=== PATIENT | female | born 1960 | race Caucasian/White ===

== ENCOUNTER 2020-11-13 10:45 | Inpatient (IN) | payer MEDICARE, MEDICAID ==
[~2020-11-13] VITALS: Ht 172.7 cm; Wt 87.5 kg
--- NOTE | 2020-11-13 11:00 | NUR ---
PT BIB EMS FROM /[facility] FROM THE ER FEELING LIKE SHE IS GOING TO HAVE A SZ AND SHE IS GOING THROUGH [facility]. SHE DRINKS 2 FIFTHS OF VODKA DAILY AND HER LAST DRINK WAS YESTERDAY AFTERNOON. WAS GIVEN ATIVAN IN THE ER PRIOR TO ARRIVAL BUT IS RESTLESS ON THE GURNEY HERE ROLLING AROUND REQUESTING JUICE. PT ON CYCLING VITALS AND CONTINUOUS SP02. EMS STATES SHE WAS 88% ON RA SO SHE IS ON 2L O2 VIA NC. PROVIDER AT BEDSIDE FOR EVAL.
[2020-11-13] MEDS ORDERED: ARIP2TAB2 PO (11:07)
[2020-11-13] MEDS ORDERED: BUPR-86 PO (11:08)
[2020-11-13] MEDS ORDERED: QUET50TA9 PO (11:09)
[2020-11-13] MEDS ORDERED: LEVO25TA2 PO (11:09)
--- NOTE | 2020-11-13 11:19 | NUR ---
PROVIDER AT BEDSIDE FOR EVAL
[2020-11-13 11:27] LABS: BASOPHILS % (AUTO) 1 % (0-1); EOSINOPHILS % (AUTO) 0 % (1-7); LYMPHOCYTES % (AUTO) 20 % (22-44); MEAN CORPUSCULAR HEMOGLOBIN 33.9 pg (27.0-34.8); MEAN CORPUSCULAR HGB CONC 34.5 g/dL (32.4-35.8); MEAN PLATELET VOLUME 6.6 fL (7.4-10.4); MONOCYTES % (AUTO) 6 % (2-9); NEUTROPHILS % (AUTO) 73 % (42-75); PLATELET COUNT 319 x10^3/uL (130-400); RED CELL DISTRIBUTION WIDTH 13.6 % (9.6-15.2)
[2020-11-13] MEDS ORDERED: SODIUM CHLORIDE FLUSH 10ML SYR IVF ONE (11:30)
[2020-11-13] MEDS ORDERED: LORazepam 2 MG/ML, 1ML IVPush PRN (11:30)
[2020-11-13 11:33] LABS: ALANINE AMINOTRANSFERASE 44 U/L (12-78); ALBUMIN 4.1 g/dL (3.4-5.0); ANION GAP 12 mmol/L (5-15); CALCIUM 8.5 mg/dL (8.5-10.1); CHLORIDE 106 mmol/L (98-107); CREATININE 0.98 mg/dL (0.55-1.02)
[2020-11-13 11:42] LABS: MD NO
[2020-11-13 11:43] LABS: ALKALINE PHOSPHATASE 134 U/L (45-117); BILIRUBIN,TOTAL 1.3 mg/dL (0.2-1.0); TOTAL PROTEIN 7.5 g/dL (6.4-8.2)
--- NOTE | 2020-11-13 11:50 | NUR ---
FIRST IV FROM EMS WOULD NOT FLUSH AND CAME OUT WHEN ASSESING. 2ND IV PLACED BY SINGH SIMEON IN THE LEFT WRIST/FOREARM
[2020-11-13] MEDS ORDERED: LORazepam 2 MG/ML, 1ML ONE (11:54)
--- NOTE | 2020-11-13 11:58 | NUR ---
MEDICATION REQUEST SENT TO PHARMACY
[2020-11-13 12:00] LABS: FREE T4 (FREE THYROXINE) 0.64 ng/dL (0.76-1.46)
[2020-11-13] MEDS ORDERED: FOLIC ACID 1 MG TABLET PO ONE (12:00)
[2020-11-13] MEDS ORDERED: THIAMINE 100MG TABLET PO ONE (12:00)
[2020-11-13] MEDS ORDERED: MULTIVITAMIN 1 TABLET PO SCH (12:00)
[2020-11-13] MEDS ORDERED: THIAMINE 100MG TABLET ONE (12:16)
[2020-11-13] MEDS ORDERED: THIAMINE 200 MG in DEXTROSE 5% 50 ML IVPB SCH (12:30)
[2020-11-13] MEDS ORDERED: LORazepam 2 MG/ML, 1ML IV PRN ×2 (12:30)
--- NOTE | 2020-11-13 12:36 | NUR ---
BREAK RN: PT RESTING WITH EYES CLOSED, BREATHING EVEN AND UNLABORED
--- NOTE | 2020-11-13 12:58 | NUR ---
PT RESTING WITH EYES CLOSED, RESPIRATIONS EVEN AND UNLABORED. CALL LIGHT WITHIN REACH. AWAITING ADMISSION UPSTAIRS
--- NOTE | 2020-11-13 13:23 | NUR ---
report to angel luis llamas.
[2020-11-13] MEDS ORDERED: METOCLOPRAMIDE 5 MG/ML, 2ML IVPush PRN (13:30)
[2020-11-13 14:27] VITALS: BP 179/84
[2020-11-13 14:38] VITALS: BP 167/109
[2020-11-13] MEDS ORDERED: QUET100T4 PO (14:45)
[2020-11-13] MEDS ORDERED: LISI40TA9 PO (14:46)
[2020-11-13] MEDS: CHLORDIAZEPOXIDE 10 MG CAPSULE PO SCH ×2 (14:53→21:56)
[2020-11-13] MEDS ORDERED: MAGNESIUM SULFATE PMX 4GM/100M 100 ML IVPB ONE (16:00)
[2020-11-13 16:09] VITALS: BP 165/101
[2020-11-13] MEDS: LORazepam 2 MG/ML, 1ML IV PRN (17:43)
[2020-11-13 18:06] VITALS: BP 167/105
[2020-11-13] MEDS: ENOXAPARIN 40 MG/0.4 ML SQ SCH (20:00)
[2020-11-13 20:17] VITALS: BP 141/91
[2020-11-14 01:58] VITALS: BP 158/98
[2020-11-14] MEDS: CHLORDIAZEPOXIDE 10 MG CAPSULE PO SCH ×4 (03:09→19:56)
[2020-11-14 04:41] LABS: ANION GAP 9 mmol/L (5-15); CALCIUM 8.4 mg/dL (8.5-10.1); CHLORIDE 104 mmol/L (98-107); CREATININE 1.16 mg/dL (0.55-1.02)
[2020-11-14] MEDS: LEVOTHYROXINE 150 MCG TABLET PO SCH (05:58)
[2020-11-14] MEDS: LORazepam 2 MG/ML, 1ML IV PRN ×7 (05:59→20:17)
[2020-11-14 07:02] VITALS: BP 150/92
[2020-11-14] MEDS: LISINOPRIL 40 MG TABLET PO SCH (08:27)
[2020-11-14] MEDS: MULTIVITAMINS/MINERALS TABLET PO SCH (08:27)
[2020-11-14] MEDS: THIAMINE 100MG TABLET PO SCH (08:27)
[2020-11-14] MEDS ORDERED: QUETIAPINE 100MG TABLET PO SCH (09:00)
[2020-11-14] MEDS ORDERED: ARIPIPRAZOLE 10 MG TABLET PO SCH (09:00)
[2020-11-14] MEDS: CLOTRIMAZOLE TROCHES 10 MG PO SCH ×4 (12:38→19:56)
[2020-11-14 12:44] VITALS: BP 158/94
[2020-11-14] MEDS: KETOROLAC 30 MG/1 ML IV PRN (14:17)
[2020-11-14 16:45] VITALS: BP 143/93
[2020-11-14] MEDS ORDERED: NICOTINE 14MG/24 HR PATCH.TD24 TD ONE (17:00)
[2020-11-14] MEDS ORDERED: LORazepam 1MG TABLET ONE (17:23)
[2020-11-14] MEDS: ENOXAPARIN 40 MG/0.4 ML SQ SCH (19:57)
[2020-11-14 20:00] VITALS: BP 161/104
[2020-11-14] MEDS: ACETAMINOPHEN 325 MG TABLET PO PRN (23:28)
[2020-11-14 23:31] VITALS: BP 146/96
[2020-11-15] MEDS: CHLORDIAZEPOXIDE 10 MG CAPSULE PO SCH ×2 (03:03→09:30)
[2020-11-15] MEDS: LEVOTHYROXINE 150 MCG TABLET PO SCH (05:29)
[2020-11-15] MEDS: CLOTRIMAZOLE TROCHES 10 MG PO SCH ×5 (05:29→21:11)
[2020-11-15 06:43] VITALS: BP 148/105
[2020-11-15] MEDS: MULTIVITAMINS/MINERALS TABLET PO SCH (09:30)
[2020-11-15] MEDS: THIAMINE 100MG TABLET PO SCH (09:30)
[2020-11-15] MEDS: LISINOPRIL 40 MG TABLET PO SCH (09:30)
[2020-11-15] MEDS: POTASSIUM CHLORIDE 20 MEQ TAB.ER.PRT PO SCH (09:31)
[2020-11-15] MEDS ORDERED: LORazepam 1MG TABLET PO PRN (11:30)
[2020-11-15] MEDS ORDERED: LORazepam 0.5MG TABLET PO PRN (11:30)
[2020-11-15 12:11] VITALS: BP 162/105
[2020-11-15] MEDS: LORazepam 1MG TABLET PO PRN ×2 (12:21→18:11)
[2020-11-15 12:25] LABS: MICROSCOPIC INDICATED
[2020-11-15] MEDS: CHLORDIAZEPOXIDE 25 MG CAPSULE PO SCH ×2 (14:59→21:11)
[2020-11-15 18:53] VITALS: BP 163/101
[2020-11-15] MEDS: ENOXAPARIN 40 MG/0.4 ML SQ SCH (21:12)
[2020-11-16] MEDS: CHLORDIAZEPOXIDE 25 MG CAPSULE PO SCH ×3 (02:00→15:33)
[2020-11-16] MEDS: CLOTRIMAZOLE TROCHES 10 MG PO SCH ×3 (06:09→15:33)
[2020-11-16] MEDS: LEVOTHYROXINE 150 MCG TABLET PO SCH (06:10)
[2020-11-16 06:28] VITALS: BP 135/90
[2020-11-16 06:42] LABS: ANION GAP 8 mmol/L (5-15); CALCIUM 8.8 mg/dL (8.5-10.1); CHLORIDE 108 mmol/L (98-107)
[2020-11-16] MEDS: LISINOPRIL 40 MG TABLET PO SCH (09:20)
[2020-11-16] MEDS: MULTIVITAMINS/MINERALS TABLET PO SCH (09:20)
[2020-11-16] MEDS: THIAMINE 100MG TABLET PO SCH (09:20)
[2020-11-16] MEDS: POTASSIUM CHLORIDE 20 MEQ TAB.ER.PRT PO SCH (09:21)
[2020-11-16] MEDS: KETOROLAC 30 MG/1 ML IV PRN (10:51)
[2020-11-16 12:07] VITALS: BP 145/94
[2020-11-16] MEDS: ACETAMINOPHEN 325 MG TABLET PO PRN (15:33)
[2020-11-16] MEDS ORDERED: NICOTINE 14MG/24 HR PATCH.TD24 TD SCH (16:30)
[2020-11-16] MEDS ORDERED: CHLO25CA9 PO (16:53)
[2020-11-16] MEDS ORDERED: MULT-484 PO (16:53)
[2020-11-16] MEDS ORDERED: CEFD300C37 PO (17:10)
== END 2020-11-16 18:11 | disposition home or self-care (01) | DRG 690 ==
LOC: ED 12:04 → SUATTDRO 12:24 → EDIP 12:51 → 3N 14:06 → 4WST 17:46
PROVIDERS: ADMIT Internal Medicine Infectious Disease; ATTEND Internal Medicine Infectious Disease
DX: N39.0 Urinary tract infection, site not specified (principal); F10.239 Alcohol dependence with withdrawal, unspecified; F10.229 Alcohol dependence with intoxication, unspecified; E03.9 Hypothyroidism, unspecified; F17.200 Nicotine dependence, unspecified, uncomplicated; F31.9 Bipolar disorder, unspecified; F43.10 Post-traumatic stress disorder, unspecified; I10 Essential (primary) hypertension; R74.01 Elevation of levels of liver transaminase levels; F19.10 Other psychoactive substance abuse, uncomplicated; Z91.14 Patient's other noncompliance with medication regimen; Z90.49 Acquired absence of other specified parts of digestive tract
CPT/HCPCS: 36415; 80048; 80053; 80320; 81001; 83735; 84100; 84439; 84443; 85025; 87077; 87086; 87186; 93005; 96374; 99285; G0378; J1650; J1885; 92523-GN; G0480; J2060; J3475